=== PATIENT | male | born 1965 | race Caucasian/White ===

== ENCOUNTER 2022-11-11 12:40 | Outpatient (RCR) | payer OTHER, SELFPAY | END 2022-11-11 16:00 | disposition home or self-care (01) | LOC: HO.WCC 12:40 | PROVIDERS: PCP Nurse Practitioner Family; Visit Provider Physician Assistant | DX: Z09 Encounter for follow-up examination after completed treatment for conditions other than malignant neoplasm (principal); L84 Corns and callosities; L82.1 Other seborrheic keratosis; J44.9 Chronic obstructive pulmonary disease, unspecified; F17.210 Nicotine dependence, cigarettes, uncomplicated; L60.2 Onychogryphosis | CPT/HCPCS: 99212 ==